=== PATIENT | female | born 2000 | race African-American/Black ===

== ENCOUNTER 2024-06-30 05:36 | Emergency (ER) | payer SELFPAY ==
[~2024-06-30] VITALS: Ht 162.6 cm; Wt 73.0 kg
[2024-06-30 05:49] VITALS: O2SAT 99
[2024-06-30] MEDS: DIPHENHYDRAMINE 25MG CAPSULE PO ONE (06:30)
[2024-06-30] MEDS: ONDANSETRON 4MG ODT PO ONE (07:31)
[2024-06-30] MEDS: HALOPERIDOL LACTATE 5MG/ML VIAL IM ONE (09:04)
[2024-06-30] MEDS ORDERED: ONDA4TAB50 MT (09:52)
[2024-06-30 10:12] VITALS: BP 132/84; PULSE 75; RESP 15; TEMP 35.89176; O2SAT 99
== END 2024-06-30 10:16 | disposition home or self-care (01) ==
LOC: ER 05:36
DX: F12.10 Cannabis abuse, uncomplicated (principal); R11.10 Vomiting, unspecified; F41.9 Anxiety disorder, unspecified; F10.90 Alcohol use, unspecified, uncomplicated; Y90.9 Presence of alcohol in blood, level not specified
CPT/HCPCS: 99283; 96372; Q0163; Q0162; J1630